=== PATIENT | female | born 1935 | race Hispanic/Latino ===

== ENCOUNTER 2022-02-24 19:07 | Inpatient (IN) | payer MEDICARE ==
[2022-02-24] MEDS ORDERED: Ketorolac Tromethamine 30 MG/ML VIAL ONE ×2 (20:09→20:10)
[2022-02-24] MEDS ORDERED: Morphine 2 MG/ML VIAL ONE (20:09)
[2022-02-24 21:02] LABS: #Eosinphils 0.1 thou/uL (0.0-0.7); #Lymphocytes 1.2 thou/uL (1.20-3.40); #Monocytes 0.5 thou/uL (0.11-0.59); #Neutrophils 10.5 thou/uL (1.40-6.50); %Basophils 0.1 % (0.0-1.0); %Eosinophils 1.2 % (0.0-10.0); %Lymphocytes 9.3 % (21.0-51.0); %Monocytes 4.2 % (0.0-10.0); %Neutrophils 85.2 % (42.0-75.0); Hemoglobin 13.1 g/dL (12.0-16.0); Mean Corpuscular HGB CONC 33.4 g/dL (32.0-36.0); Mean Corpuscular Hemoglobin 31.5 pg (27.0-31.0); Mean Corpuscular Volume 94.2 fL (78.0-98.0); Mean Platelet Volume 8.5 fL (7.4-10.4); Platelet Count 150 thou/uL (130-400); Red Blood Cell (RBC) Count 4.17 mill/uL (4.20-5.40); White Blood Cell (WBC) Count 12.3 thou/uL (4.8-10.8)
[2022-02-24 21:23] LABS: ALT (SGPT) 36 U/L (8-55); AST (SGOT) 58 U/L (5-34); Alkaline Phosphatase 77 U/L (40-110); Anion Gap 15 mmol/L (10-20); BUN (Urea Nitrogen) 14 mg/dL (9.8-20.1); Bilirubin, Total 0.7 mg/dL (0.2-1.2); Calc. Creatinine Clearance 0 mL/min (70-130); Calcium 8.7 mg/dL (7.8-10.44); Carbon Dioxide 22 mmol/L (23-31); Chloride 103 mmol/L (98-107); Globulin 2.6 g/dL (2.4-3.5); Glucose 149 mg/dL (83-110); Potassium 3.5 mmol/L (3.5-5.1); Protein, Total 6.6 g/dL (5.8-8.1); Sodium 136 mmol/L (136-145)
[2022-02-25] MEDS: Morphine 4 MG/ML VIAL SLOW IVP PRN ×2 (01:10→05:50)
[2022-02-25] MEDS ORDERED: Ondansetron PF 4 MG/2 ML Vial IVP PRN ×2 (01:15→06:16)
[2022-02-25] MEDS ORDERED: Ondansetron ODT 4 MG TAB SL PRN (01:15)
[2022-02-25 01:58] VITALS: BMI 23.4
[2022-02-25] MEDS ORDERED: hydrALAZINE 20 MG/ML VIAL SLOW IVP PRN ×2 (06:16→07:15)
[2022-02-25] MEDS ORDERED: Dextrose 5% in Water 1,000 ML IV PRN (06:16)
[2022-02-25] MEDS ORDERED: Dextrose 50% Abboject 50 ML SYRINGE SLOW IVP PRN (06:16)
[2022-02-25] MEDS ORDERED: Ondansetron ODT 4 MG TAB PO PRN (06:16)
[2022-02-25] MEDS ORDERED: traMADol HCl 50 MG TAB PO PRN (06:22)
[2022-02-25] MEDS ORDERED: Cyclobenzaprine 10 MG TAB PO PRN (06:22)
[2022-02-25] MEDS ORDERED: Ibuprofen 800 MG TAB PO PRN (06:22)
[2022-02-25] MEDS ORDERED: Acetaminophen 500 MG TAB PO SCH ×2 (06:30→12:00)
[2022-02-25] MEDS ORDERED: Gabapentin 100 MG CAP PO SCH ×2 (06:30→14:00)
[2022-02-25] MEDS ORDERED: traMADol HCl 50 MG TAB PO SCH ×2 (06:45→12:00)
[2022-02-25] MEDS ORDERED: Polyethylene Glycol 3350 17 GM Packet PO SCH (09:00)
[2022-02-25] MEDS ORDERED: Famotidine 20 MG TAB PO SCH (09:00)
[2022-02-25] MEDS ORDERED: Senokot S 8.6-50 MG TAB PO SCH (09:00)
[2022-02-25 12:29] VITALS: TEMP 98
[2022-02-25 12:30] LABS: SARS-CoV-2 PCR by NAA Not Detected (NotDetected)
[2022-02-25 13:41] VITALS: BP 124/69
== END 2022-02-25 14:24 | disposition home or self-care (01) | DRG 964 ==
LOC: ERS 19:07 → SURG A 23:12
PROVIDERS: ADMIT Surgery; ATTEND Surgery
DX: S27.1XXA Traumatic hemothorax, initial encounter (principal); S22.051A Stable burst fracture of T5-T6 vertebra, initial encounter for closed fracture; S32.591A Other specified fracture of right pubis, initial encounter for closed fracture; S22.41XA Multiple fractures of ribs, right side, initial encounter for closed fracture; S22.041A Stable burst fracture of fourth thoracic vertebra, initial encounter for closed fracture; Z20.822 Contact with and (suspected) exposure to COVID-19; W10.9XXA Fall (on) (from) unspecified stairs and steps, initial encounter; I10 Essential (primary) hypertension
CPT/HCPCS: 70450; 71045; 71260; 72125; 74177; 80053; 85025; 94760; 96374; 96375; J1885; J2270; U0003; U0005

== ENCOUNTER 2022-03-12 10:05 | Outpatient (CLI) | payer MEDICARE | END 2022-03-12 10:06 | disposition home or self-care (01) | LOC: TBSIIMAG 10:05 | PROVIDERS: ATTEND Surgery | DX: S22.030D Wedge compression fracture of third thoracic vertebra, subsequent encounter for fracture with routine healing (principal); S22.040D Wedge compression fracture of fourth thoracic vertebra, subsequent encounter for fracture with routine healing; S22.050D Wedge compression fracture of T5-T6 vertebra, subsequent encounter for fracture with routine healing; S22.41XD Multiple fractures of ribs, right side, subsequent encounter for fracture with routine healing; M85.88 Other specified disorders of bone density and structure, other site; M47.812 Spondylosis without myelopathy or radiculopathy, cervical region | CPT/HCPCS: 72072 ==

== ENCOUNTER 2022-04-07 12:53 | Outpatient (CLI) | payer MEDICARE | END 2022-04-07 12:54 | disposition home or self-care (01) | LOC: RAD 12:53 | DX: S22.04 Fracture of fourth thoracic vertebra (principal); S22.039D Unspecified fracture of third thoracic vertebra, subsequent encounter for fracture with routine healing; S22.059D Unspecified fracture of T5-T6 vertebra, subsequent encounter for fracture with routine healing | CPT/HCPCS: 72072 ==

== ENCOUNTER 2022-05-25 10:05 | Outpatient (CLI) | payer MEDICARE | END 2022-05-25 10:06 | disposition home or self-care (01) | LOC: TBSIIMAG 10:05 | PROVIDERS: ATTEND Surgery | DX: S22.009D Unspecified fracture of unspecified thoracic vertebra, subsequent encounter for fracture with routine healing (principal); S32.009D Unspecified fracture of unspecified lumbar vertebra, subsequent encounter for fracture with routine healing | CPT/HCPCS: 72072 ==